=== PATIENT | male | born 1990 | race Two or more races ===

== ENCOUNTER 2021-03-23 17:53 | Emergency (ER) | payer MEDICAID ==
[~2021-03-23] VITALS: Ht 172.7 cm; Wt 79.4 kg
[2021-03-23 20:00] VITALS: BP 134/89
== END 2021-03-23 21:17 | disposition home or self-care (01) ==
LOC: ER 17:53
DX: B34.9 Viral infection, unspecified (principal); Z20.822 Contact with and (suspected) exposure to COVID-19
CPT/HCPCS: 36415; 87426

== ENCOUNTER 2021-04-16 03:43 | Emergency (ER) | payer MEDICAID ==
[~2021-04-16] VITALS: Ht 170.2 cm; Wt 79.8 kg
[2021-04-16 03:50] VITALS: BP 123/85
== END 2021-04-16 09:49 | disposition left against medical advice (07) ==
LOC: ER 03:43
DX: R07.89 Other chest pain (principal); F17.210 Nicotine dependence, cigarettes, uncomplicated; Z90.49 Acquired absence of other specified parts of digestive tract
CPT/HCPCS: 71045; 93005

== ENCOUNTER 2024-10-23 19:17 | Emergency (ER) | payer MEDICAID, OTHER ==
[~2024-10-23] VITALS: Ht 172.7 cm; Wt 83.7 kg
--- NOTE | 2024-10-23 19:52 | ECG ---
[facility] Test Date: 2024-10-23 Test Time: 19:51:13 Pat Name: TOMÁS AGUERO Department: ED Room: Gender: M Data Analyst Etl Developer: CHRISTIANO : 1990 Requested By: ESTEPHANIE ODELL Order Number: [id number] Reading MD: Measurements Intervals [place] Rate: 66 P: 63 MD: 145 QRS: 68 QRSD: 99 T: 48 QT: 386 QTc: 405 Interpretive Statements Sinus rhythm Please click the below link to view image of tracing.
[2024-10-23 19:53] VITALS: BP 115/80; RESP 20; TEMP 98.1; O2SAT 97
[2024-10-23 19:54] VITALS: PULSE 66
--- NOTE | 2024-10-23 19:54 | ED.PDOC ---
Eye-HPI HPI Comments 34-year-old male presents to ER with complaints of dizziness x1 day. Patient reports that he woke up with dizziness at 8:00 a.m. this morning. Patient describes his dizziness as feeling "light headed", denying sensation of room spinning. Denies any pain and denies use of medications for current symptoms. Patient presents to ER ambulatory on arrival, oriented x4, with steady gait, in no distress. Denies headache, nausea/vomiting, numbness/tingling, vision changes, confusion, fever, recent illness, shortness of breath, chest pain, palpitations, head injury, syncope or any further symptoms/complaints Chief Complaint: Dizziness Time Seen by MD: 19:33 Primary Care Provider: UNKNOWN Reviewed Notes: Nurses Notes, Medications, Allergies Allergies: Coded Allergies: NO KNOWN ALLERGIES (Unverified , 03/23/21) Home Meds Active Scripts Meclizine Hcl (Meclizine Hcl) 12.5 Mg Tab, 2 TAB PO QIDP PRN, #16 TAB 0 Refills Prov:ESTEPHANIE ODELL 10/23/24 Information Source: Patient Past Medical History PAST MEDICAL HISTORY: Denies Surgical History: Appendectomy Family History Family History: Family hx of HTN Social History Smoker: Cigarettes, Less Than 1 Pack/Day Alcohol: Denies ETOH Use Drugs: Denies Drug Use Lives In: Home Constitutional: denies: chills, diaphoresis, fatigue, fever, malaise, sweats, weakness, others EENTM: denies: blurred vision, double vision, ear bleeding, ear discharge, ear drainage, ear pain, ear ringing, eye pain, eye redness, hearing loss, mouth pain, mouth swelling, nasal discharge, nose bleeding, nose congestion, nose pain, photophobia, tearing, throat pain, throat swelling, voice changes, others Respiratory: denies: cough, hemoptysis, orthopnea, SOB at rest, shortness of breath, SOB with excertion, stridor, wheezing, others Cardiovascular: reports: others (As stated in HPI) Gastrointestinal: denies: abdomen distended, abdominal pain, blood streaked bowels, constipated, diarrhea, dysphagia, difficulty swallowing, hematemesis, melena, nausea, poor appetite, poor fluid intake, rectal bleeding, rectal pain, vomiting, others Genitourinary: denies: burning, dysuria, flank pain, frequency, hematuria, incontinence, penile discharge, penile sore, pain, testicle pain, testicle swelling, urgency, others Neurological: reports: others (As stated in HPI) Musculoskeletal: denies: back pain, gout, joint pain, joint swelling, muscle pain, muscle stiffness, neck pain, others Integumetry: denies: bruises, change in color, change in hair/nails, dryness, laceration, lesions, lumps, rash, wounds, others Allergic/Immunocompromised: denies: Difficulty Healing, Frequent Infections, Hives, Itching, others Hematologic/Lymphatic: denies: anemia, blood clots, easy bleeding, easy bruising, swollen glands, others Endocrine: denies: excessive hunger, excessive sweating, excessive thirst, excessive urination, flushing, intolerance to cold, intolerance to heat, unexplained weight gain, unexplained weight loss, others Psychiatric: denies: anxiety, bipolar disorder, depression, hopeless, panic disorder, schizophrenia, sleepless, suicidal, others Physical Exam General Appearance: No Apparent Distress, Normal HEENT: Normal ENT Inspection, PERRL/EOMI, Pharynx Normal, TMs Normal Neck: Full Range of Motion, Non-Tender, Normal Respiratory: Chest Non-Tender, Lungs Clear, No Accessory Muscle Use, No Respiratory Distress, Normal Breath Sounds Cardiovascular: No Murmur, No Gallop, Regular Rate/Rhythm Breast Exam: Deferred Gastrointestinal: NOT DONE Genitalia: Deferred Pelvic: Deferred Rectal: Deferred Extremities: Normal capillary refill, Normal range of motion Neurologic: Alert, record cutter II-XII nml as Tested, No Motor Deficits, Normal Affect, Normal Mood, No Sensory Deficits Cerebellar Function: Normal Reflexes: Normal Skin: Dry, Normal Color, Warm Peripheral Pulses: 2+ carotid (R), 2+ carotid (L), 2+ Radial (R), 2+ Radial (L), 2+ Brachial (R), 2+ Brachial (L) Lymphatic: No Adenopathy Was a procedure done? Was a procedure done?: No Sedation Sedation?: No EKG EKG : Pulse Rate (adult): 66 Cardiac Rhythm: NSR (SR) Block: None Hypertrophy: None ST: Normal EENT DIFF Eye: N/A Other Differential Diagnosis CVA, dehydration, MT, mass X-Ray, Labs, Meds, VS Vital Signs Date Time Temp Pulse Resp B/P (MAP) Pulse Ox O2 Delivery O2 Flow Rate FiO2 10/23/24 19:54 66 10/23/24 19:53 98.1 80 20 115/80 (92) 97 98.1 10/23/24 19:51 66 Lab Test 10/23/24 19:54 Range/Units White Blood Count 8.7 4.4-10.8 10^3/uL Red Blood Count 5.00 4.5-5.90 10^6/uL Hemoglobin 15.1 13.5-17.5 g/dL Hematocrit 43.1 41.0-53.0 % Mean Corpuscular Volume 86.2 80.0-100.0 fL Mean Corpuscular Hemoglobin 30.3 28.0-32.0 pg Mean Corpuscular Hemoglobin Concent 35.1 32.0-36.0 g/dL Red Cell Distribution Width 12.8 11.8-14.3 % Platelet Count 270 140-450 10^3/uL Mean Platelet Volume 7.6 6.9-10.8 fL Neutrophils (%) (Auto) 52.2 37.0-80.0 % Lymphocytes (%) (Auto) 35.8 10.0-50.0 % Monocytes (%) (Auto) 7.0 0.0-12.0 % Eosinophils (%) (Auto) 4.2 0.0-7.0 % Basophils (%) (Auto) 0.8 0.0-2.0 % Neutrophils # (Auto) 4.6 1.6-8.6 10 ^3/uL Lymphocytes # (Auto) 3.1 0.4-5.4 10 ^3/uL Monocytes # (Auto) 0.6 0-1.3 10 ^3/uL Eosinophils # (Auto) 0.4 0-0.8 10 ^3/uL Basophils # (Auto) 0.1 0-0.2 10 ^3/uL Nucleated Red Blood Cells 0.1 % Sodium Level 141 136-145 mmol/L Potassium Level 3.9 3.5-5.1 mmol/L Chloride Level 107 98-107 mmol/L Carbon Dioxide Level 27 20-31 mmol/L Anion Gap 7 5-15 Blood Urea Nitrogen 11 9-23 mg/dL Creatinine 1.04 0.700-1.30 mg/dL Glomerular Filtration Rate Calc 96 >90 mL/min BUN/Creatinine Ratio 10.6 10.0-20.0 Serum Glucose 100 74-106 mg/dL Calcium Level 10.1 8.7-10.4 mg/dL Troponin I High Sensitivity < 3 L </=54 ng/L CBC reviewed-unremarkable BMP reviewed-unremarkable Troponin reviewed-normal EKG reviewed Hep-Lock IV ordered NS 1 L IV ordered Meclizine 50 mg p.o. ordered Patient had improvement in symptoms and was asymptomatic prior to discharge Advised to drink plenty of fluids Advised to follow up with PCP in 1-2 days Patient alert and oriented x4 prior to discharge. Patient verbalized understanding and agreeable with current plan of care Advised to return to ER immediately if symptoms worsen Time of 1ST Reevaluation: 21:02 Reevaluation 1ST: N/A Patient Education/Counseling: Diagnosis, Treatment, Prognosis, Need For Follow Up Family Education/Counseling: No Family Present SEPSIS Sepsis Screen Physician Orders Heplock Iv (10/23/24 ) Vital Signs Date Time Temp Pulse Resp B/P (MAP) Pulse Ox O2 Delivery O2 Flow Rate FiO2 10/23/24 19:54 66 10/23/24 19:53 98.1 80 20 115/80 (92) 97 98.1 10/23/24 19:51 66 Laboratory Tests Test 10/23/24 19:54 White Blood Count 8.7 10^3/uL (4.4-10.8) Departure 1 Departure Time of Disposition: 21:22 Impression: Primary Impression: Dizziness Disposition: 01 HOME / SELF CARE / HOMELESS Condition: Stable e-Prescriptions Meclizine Hcl (Meclizine Hcl) 12.5 Mg Tab 2 TAB PO QIDP PRN, #16 TAB 0 Refills Prov: ESTEPHANIE ODELL 10/23/24 Discharged With: Friend Critical Care Note Critical Care Time?: No Stability Stability form required: No Heart Score Heart Score: Heart Score Response (Comments) Value History N/A 0 EKG N/A 0 Age N/A 0 Risk Factors N/A 0 Troponin N/A 0 Total 0 ESTEPHANIE ODELL Oct 23, 2024 19:54
[2024-10-23] MEDS ORDERED: MECLIZINE HCL 25 MG TAB PO ONE (20:00)
[2024-10-23] MEDS ORDERED: SODIUM CHLORIDE 0.9% 1,000 ML IV ONE (20:00)
[2024-10-23 20:01] LABS: Hematocrit 43.1 % (41.0-53.0); Hemoglobin 15.1 g/dL (13.5-17.5); Mean Corpuscular Hemoglobin 30.3 pg (28.0-32.0); Mean Corpuscular Volume 86.2 fL (80.0-100.0); Nucleated Red Blood Cells % 0.1 %
[2024-10-23 20:09] LABS: Potassium 3.9 mmol/L (3.5-5.1); Sodium 141 mmol/L (136-145)
[2024-10-23 20:10] LABS: Anion Gap 7 (5-15); Calcium 10.1 mg/dL (8.7-10.4); Carbon Dioxide 27 mmol/L (20-31); Chloride 107 mmol/L (98-107)
[2024-10-23 20:15] LABS: BUN/Creatinine Ratio 10.6 (10.0-20.0); Blood Urea Nitrogen 11 mg/dL (9-23); Glucose 100 mg/dL (74-106)
[2024-10-23] MEDS ORDERED: MECL12.586 PO (21:53)
== END 2024-10-24 00:57 | disposition home or self-care (01) ==
LOC: ER 19:17
DX: R42 Dizziness and giddiness (principal); F17.210 Nicotine dependence, cigarettes, uncomplicated; Z90.49 Acquired absence of other specified parts of digestive tract
CPT/HCPCS: 36415; 80048; 82947; 84484; 85025; 93005